=== PATIENT | female | born 1950 | race Caucasian/White ===

== ENCOUNTER 2017-10-15 04:49 | Emergency (ER) | payer MEDICARE, BC ==
--- NOTE | 2017-10-15 05:38 | EDM.PDOC ---
ED HPI GENERAL MEDICAL PROBLEM - General Chief Complaint: ENT Problem Stated Complaint: SORE THROAT Time Seen by Provider: 10/15/17 05:36 - History of Present Illness INITIAL COMMENTS - FREE TEXT/NARRATIVE: HISTORY AND PHYSICAL: History of present illness: Patient 67-year-old female presents with a concern of sore throat 2 days she denies fever chills nausea vomiting or other complaints Review of systems: As per history of present illness and below otherwise all systems reviewed and negative. Past medical history: As per history of present illness and as reviewed below otherwise noncontributory. Surgical history: As per history of present illness and as reviewed below otherwise noncontributory. Social history: No reported history of drug or alcohol abuse. Family history: As per history of present illness and as reviewed below otherwise noncontributory. Physical exam: HEENT: Atraumatic, normocephalic, pupils reactive, negative for conjunctival pallor or scleral icterus, mucous membranes moist, throat mild injection, neck supple, nontender, trachea midline. Lungs: Clear to auscultation, breath sounds equal bilaterally, chest nontender. Heart: S1S2, regular, negative for clicks, rubs, or JVD. Abdomen: Soft, nondistended, nontender. Negative for masses or hepatosplenomegaly. Negative for costovertebral tenderness. Pelvis: Stable nontender. Genitourinary: Deferred. Rectal: Deferred. Extremities: Atraumatic, negative for cords or calf pain. Neurovascular unremarkable. Neuro: Awake, alert, oriented. Cranial nerves II through XII unremarkable. Cerebellum unremarkable. Motor and sensory unremarkable throughout. Exam nonfocal. Diagnostics: Rapid strep chest x-ray Therapeutics: None Impression: #1 pharyngitis Definitive disposition and diagnosis as appropriate pending reevaluation and review of above. 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: Musculoskeletal History: Reports: None Neurological History: Reports: None Psychiatric History: Reports: None Endocrine/Metabolic History: Reports: None Hematologic History: Reports: None Immunologic History: Reports: None Oncologic (Cancer) History: Reports: None Dermatologic History: Reports: None - Infectious Disease History Infectious Disease History: Reports: None - Past Surgical History Head Surgeries/Procedures: Reports: None HEENT Surgical History: Reports: None Cardiovascular Surgical History: Reports: None GI Surgical History: Reports: Cholecystectomy Endocrine Surgical History: Reports: None Oncologic Surgical History: Reports: None Social & Family History - Tobacco Use Smoking Status *Q: Never Smoker Second Hand Smoke Exposure: No - Caffeine Use Caffeine Use: Reports: None - Recreational Drug Use Recreational Drug Use: No ED ROS GENERAL - Review of Systems Review Of Systems: ROS reveals no pertinent complaints other than HPI. ED EXAM, GENERAL - Physical Exam Exam: See Below (See dictation) Course - Vital Signs Last Recorded V/S: Last Vital Signs Temp 36.8 C 10/15/17 04:56 Pulse 91 10/15/17 04:56 Resp 18 10/15/17 04:56 BP 152/55 H 10/15/17 04:56 Pulse Ox 95 10/15/17 04:56 - Orders/Labs/Meds Orders: Active Orders 24 hr Category Date Time Status Chest 1V Frontal [CR] Stat Exams 10/15/17 05:33 Ordered STREP SCRN A RAPID W CULT CONF [RM] Stat Lab 10/15/17 05:10 Received Departure - Departure Time of Disposition: 05:37 Disposition: Home, Self-Care 01 Condition: Good Clinical Impression: Pharyngitis - Discharge Information Referrals: PCP,None [Primary Care Provider] - Additional Instructions: The following information is given to patients seen in the emergency department who are being discharged to home. This information is to outline your options for follow-up care. We provide all patients seen in our emergency department with a follow-up referral. The need for follow-up, as well as the timing and circumstances, are variable depending upon the specifics of your emergency department visit. If you don't have a primary care physician on staff, we will provide you with a referral. We always advise you to contact your personal physician following an emergency department visit to inform them of the circumstance of the visit and for follow-up with them and/or the need for any referrals to a consulting specialist. The emergency department will also refer you to a specialist when appropriate. This referral assures that you have the opportunity for followup care with a specialist. All of these measure are taken in an effort to provide you with optimal care, which includes your followup. Under all circumstances we always encourage you to contact your private physician who remains a resource for coordinating your care. When calling for followup care, please make the office aware that this follow-up is from your recent emergency room visit. If for any reason you are refused follow-up, please contact the [facility] emergency department at and asked to speak to the emergency department charge nurse. Tylenol with Codeine as prescribed and follow-up primary medical doctor when today's return as needed as discussed - My Orders Last 24 Hours: My Active Orders 10/15/17 05:10 STREP SCRN A RAPID W CULT CONF [RM] Stat 10/15/17 05:33 Chest 1V Frontal [CR] Stat - Assessment/Plan Last 24 Hours: My Active Orders 10/15/17 05:10 STREP SCRN A RAPID W CULT CONF [RM] Stat 10/15/17 05:33 Chest 1V Frontal [CR] Stat
--- NOTE | 2017-10-16 16:02 | CR ---
EXAM DATE: 10/15/17 PATIENT'S AGE: 67 Patient: MICHAEL DANIELS Facility: [place], [place] Site . Site : [id number] Study: XRay Chest [id number]/[id number] 5:45:03 AM Ordering Physician: Doctor Randall Final Report: Indication: Cough Technique: Chest 1 view Comparison: None Findings/Impression: Cardiovascular and mediastinum: Heart size and vasculature are normal in caliber and appearance. Mediastinum is within normal limits. Lungs and pleural space: An expiratory study. A small ill-defined opacity in the lateral left base could represent mild subsegmental atelectasis. Correlate clinically and followup to exclude a small infiltrate. No gross pleural effusions. Mild left apical pleural thickening. Bones and soft tissues: No significant findings. Dictated by Ángel Shetty MD @ 10/15/2017 6:18:32 AM Dictated by: Ángel Shetty MD @ 10/15/2017 06:18:37 (Electronic Signature) Report Signed by Proxy. [facility] MEDICAL CENTERDamian
== END 2017-10-15 06:34 | disposition home or self-care (01) ==
LOC: MW.ED 04:49
DX: J02.9 Acute pharyngitis, unspecified (principal); E78.00 Pure hypercholesterolemia, unspecified; I10 Essential (primary) hypertension
CPT/HCPCS: 71010; 71010-26; 87081; 87880; 99283

== ENCOUNTER 2018-03-22 06:31 | Day surgery (SDC) | payer MEDICARE, BC ==
[~2018-03-22 06:31] MED LIST: Lactated Ringers 1,000 ML IV SCH
--- NOTE | 2018-03-22 07:16 | PCM.PREANE ---
Preanesthetic Assessment - Anesthesia/Transfusion/Family Hx Anesthesia History: Prior Anesthesia Without Reaction Family History of Anesthesia Reaction: No Transfusion History: No Prior Transfusion(s) Intubation History: Unknown - Review of Systems General: No Symptoms Pulmonary: No Symptoms Cardiovascular: No Symptoms Gastrointestinal: Other (change in bowel habits) Neurological: No Symptoms Other: Reports: None - Physical Assessment O2 Sat by Pulse Oximetry: 96 Respiratory Rate: 16 Vital Signs: Last Vital Signs Temp 36.7 C 03/22/18 06:43 Pulse 63 03/22/18 06:43 Resp 16 03/22/18 06:43 BP 118/72 03/22/18 06:43 Pulse Ox 96 03/22/18 06:43 Height: 1.55 m Weight: 65.317 kg ASA Class: 2 Mental Status: Alert & Oriented x3 Airway Class: Mallampati = 2 Dentition: Reports: Normal Dentition Thyro-Mental Finger Breadths: 2 Mouth Opening Finger Breadths: 3 ROM/Head Extension: Full Lungs: Clear to Auscultation, Normal Respiratory Effort Cardiovascular: Regular Rate, Regular Rhythm - Allergies Allergies/Adverse Reactions: Allergies Allergy/AdvReac Type Severity Reaction Status Date / Time tetracycline Allergy Rash Verified 03/19/18 10:40 - Blood Blood Available: No - Anesthesia Plan Pre-Op Medication Ordered: None - Acknowledgements Anesthesia Type Planned: MAC Pt an Appropriate Candidate for the Planned Anesthesia: Yes Alternatives and Risks of Anesthesia Discussed w Pt/Guardian: Yes Pt/Guardian Understands and Agrees with Anesthesia Plan: Yes PreAnesthesia Questionnaire HEENT History: Reports: None Other HEENT History: has upper and lower permanent dental bridges Cardiovascular History: Reports: High Cholesterol (takes meds only every other day now), Hypertension (normal values with medications) Respiratory History: Reports: None Gastrointestinal History: Reports: None, Diverticulosis Genitourinary History: Reports: None 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: Musculoskeletal History: Reports: None Neurological History: Reports: None, Other (See Below) (h/o migraines (not significant since menopause)) Psychiatric History: Reports: None, Other (See Below) (h/o depression and anxiety, not any more) Other Endocrine/Metabolic History: has a thyroid bx scheduled because of nodule on thyroid, no meds for diabetes (A1C down to 5.9) Hematologic History: Reports: None Immunologic History: Reports: None Oncologic (Cancer) History: Reports: None Dermatologic History: Reports: None - Infectious Disease History Infectious Disease History: Reports: None - Past Surgical History Head Surgeries/Procedures: Reports: None HEENT Surgical History: Reports: None, Cataract Surgery Cardiovascular Surgical History: Reports: None GI Surgical History: Reports: Cholecystectomy, Colonoscopy (x2, last one 5 years ago) Female Surgical History: Reports: Hysterectomy Other Female Surgeries/Procedures: bladder surgery Endocrine Surgical History: Reports: None Oncologic Surgical History: Reports: None - SUBSTANCE USE Smoking Status *Q: Never Smoker Recreational Drug Use History: No - HOME MEDS Home Medications: Home Meds Lisinopril/Hydrochlorothiazide [Lisinopril-Hctz 20-12.5 mg Tab] 1 tab PO DAILY 02/12/18 [History] Cholecalciferol (Vitamin D3) [Vitamin D3] 2,000 unit PO DAILY 03/19/18 [History] Glucose Burn 1 tab PO BIDMEALS 03/19/18 [History] Multivitamin [Daily Multiple Vitamin] 1 tab PO DAILY 03/19/18 [History] - CURRENT (IN HOUSE) MEDS Current Meds: Current Medications Lactated Ringer's (Ringers, Lactated) 1,000 mls @ 125 mls/hr IV ASDIRECTED [facility] Last Admin: 03/22/18 06:48 Dose: 125 mls/hr
[2018-03-22] MEDS ORDERED: Midazolam 1 MG/ML 2 ML SDV ONE (07:33)
[2018-03-22] MEDS ORDERED: Lidocaine 2% 5 ML SDV ONE (07:33)
[2018-03-22] MEDS ORDERED: fentaNYL 100 MCG/2 ML SDV ONE (07:33)
[2018-03-22] MEDS ORDERED: Propofol 200 MG/20 ML SDV ONE ×2 (07:33→08:07)
[2018-03-22] MEDS ORDERED: ePHEDrine 50 MG/ML SDV ONE (08:02)
--- NOTE | 2018-03-22 08:33 | PCM.OPNOTE ---
- General Post-Op/Procedure Note Date of Surgery/Procedure: 03/22/18 Operative Procedure(s): Colonoscopy with cold rectal polypectomy 2 Pre Op Diagnosis: Change in bowel habits. Family history of colon cancer. Desire for colorectal cancer screening. Post-Op Diagnosis: Rectal polyps 2. Pancolonic diverticulosis. Anesthesia Technique: MAC (ASA II) Primary Surgeon: Ian Ro Condition: Good Free Text/Narrative:: DICTATION [id number] CPT CODE 36784
[2018-03-22] MEDS ORDERED: Lactated Ringers 1,000 ML IV SCH (08:45)
--- NOTE | 2018-03-22 09:29 | OR ---
SURGEON: Ian Ro M.D. DATE OF PROCEDURE: 03/22/2018 OPERATION PERFORMED: Colonoscopy with cold rectal polypectomy x2. ANESTHESIA: MAC. ASA CLASSIFICATION: II. PREOPERATIVE DIAGNOSES: 1. Family history of colon cancer. 2. Change in bowel habits. 3. Desire for colorectal cancer screening. POSTOPERATIVE DIAGNOSES: 1. Rectal polyp x2. 2. Pancolonic diverticulosis. DESCRIPTION OF PROCEDURE: The patient was taken to the endoscopy room and positioned on the endoscopy table in the left lateral decubitus position. Time-out was called for appropriate identification of the patient and procedure. Monitored anesthesia care was provided. The colonoscope was inserted into the rectum and advanced with minimal difficulty to the cecum. Cecum was identified by internal landmarks and external pressure. The colonoscope was retroflexed to visualize the ascending colon from below, then straightened and slowly withdrawn. Diverticular changes are noted throughout the entire length of the colon beginning in the mid ascending colon. The cecum, ascending colon, hepatic flexure, transverse colon, splenic flexure, descending colon, and sigmoid colon showed no tumors or polyps. No angiodysplastic changes were noted. There was no evidence of inflammatory bowel disease. Two small polyps were encountered in the rectum and removed with the cold biopsy forceps. They were in the same area and sent as one specimen. The colonoscope once withdrawn to the rectum was retroflexed to visualize the anal orifice from above. Again, no tumors or polyps were seen and there were no acute hemorrhoidal changes. The colonoscope was then straightened, the rectum aspirated, and the colonoscope removed. The patient tolerated the procedure well and was taken to recovery room in stable condition. DEE DEE / KURT /[id number]
--- NOTE | 2018-03-22 09:38 | PCM48HPAN ---
Post Anesthesia Note - EVALUATION WITHIN 48HRS OF ANESTHETIC Vital Signs in Normal Range: Yes Patient Participated in Evaluation: Yes Respiratory Function Stable: Yes Airway Patent: Yes Cardiovascular Function Stable: Yes Hydration Status Stable: Yes Pain Control Satisfactory: Yes Nausea and Vomiting Control Satisfactory: Yes Mental Status Recovered: Yes Resp Rate: 12 - COMMENTS/OBSERVATIONS Free Text/Narrative:: no anesthesia problems
== END 2018-03-22 09:54 | disposition home or self-care (01) ==
LOC: MW.SDS 06:31
PROVIDERS: ATTEND Surgery
DX: R19.4 Change in bowel habit (principal); K62.1 Rectal polyp; K57.30 Diverticulosis of large intestine without perforation or abscess without bleeding; E11.36 Type 2 diabetes mellitus with diabetic cataract; E78.5 Hyperlipidemia, unspecified; Z79.84 Long term (current) use of oral hypoglycemic drugs; I10 Essential (primary) hypertension; Z80.0 Family history of malignant neoplasm of digestive organs; Z88.1 Allergy status to other antibiotic agents; Z79.899 Other long term (current) drug therapy
CPT/HCPCS: 45380; J2250; J3010; J7120; 00811; 88305; J2704